=== PATIENT | male | born 1995 | race Caucasian/White ===

== ENCOUNTER 2020-04-23 16:28 | Emergency (ER) | payer SELFPAY ==
[~2020-04-23] VITALS: Ht 180.3 cm; Wt 75.0 kg
[~2020-04-23 16:28] MED LIST: LIDOCAINE/PF 2% 5 ML VIAL INJ ONE; PROPOFOL 1% 20 ML VIAL IVP ONE; SUCCINYLCHOLINE CHLORIDE 20 MG/ML 10 ML VIAL IVP ONE
[2020-04-23] MEDS ORDERED: FentaNYL CITRATE-PF 100 MCG/2 ML VIAL IVP ONE (17:45)
[2020-04-23] MEDS ORDERED: MIDAZOLAM HCL 2 MG/2 ML VIAL IVP ONE (17:45)
[2020-04-23] MEDS ORDERED: KETAMINE HCL 50 MG/ML 10 ML VIAL ONE (18:11)
[2020-04-23] MEDS ORDERED: PROPOFOL 1% 20 ML VIAL IVP ONE (18:15)
[2020-04-23] MEDS ORDERED: WATER IV PRN (18:15)
[2020-04-23] MEDS ORDERED: KETAMINE HCL IV PRN (18:15)
[2020-04-23] MEDS ORDERED: DEXTROSE 5% IV PRN (18:15)
[2020-04-23 19:18] VITALS: BP 114/63
== END 2020-04-23 19:25 | disposition home or self-care (01) ==
LOC: EMS 16:28
DX: S53.124A Posterior dislocation of right ulnohumeral joint, initial encounter (principal); V00.131A Fall from skateboard, initial encounter; Y93.51 Activity, roller skating (inline) and skateboarding; Y92.89 Other specified places as the place of occurrence of the external cause; Y99.8 Other external cause status
CPT/HCPCS: 24600; 73070; 73080; 99152; 99285; J0330; J2250; J2704; J3010; J3490; J7060